=== PATIENT | male | born 1990 | race Caucasian/White ===

== ENCOUNTER 2020-08-12 05:37 | Emergency (ER) | payer SELFPAY ==
[~2020-08-12] VITALS: Ht 182.9 cm; Wt 99.8 kg
[2020-08-12 05:40] VITALS: BP_SYST 173
--- NOTE | 2020-08-12 05:40 | NUR ---
Placed in ambulance bay. LIUDMILA garcia with patient.
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
[2020-08-12 06:12] VITALS: BP_SYST 173
--- NOTE | 2020-08-12 06:30 | NUR ---
ER at AMBULANCE BAY examining patient.
[2020-08-12 07:14] VITALS: BP_SYST 173
--- NOTE | 2020-08-12 07:14 | NUR ---
Patient given written and verbal discharge instructions and verbalizes understanding. ER MD discussed with patient the results and treatment provided. Patient in stable condition. ID arm band removed. Patient educated on pain management and to follow up with PMD. Opportunity for questions provided and answered. Medication side effect fact sheet provided.
[2020-08-12] MEDS ORDERED: KETOROLAC TROMETHAMINE 30 MG VIAL ONE (13:09)
== END 2020-08-12 07:14 ==
LOC: SED 05:37
DX: S43.491A Other sprain of right shoulder joint, initial encounter (principal); X50.1XXA Overexertion from prolonged static or awkward postures, initial encounter; Y93.89 Activity, other specified; Y92.89 Other specified places as the place of occurrence of the external cause; Y99.8 Other external cause status
CPT/HCPCS: 99283; J1885

== ENCOUNTER 2020-08-12 12:28 | Emergency (ER) | payer SELFPAY ==
[~2020-08-12] VITALS: Ht 182.9 cm; Wt 104.3 kg
[2020-08-12 12:31] VITALS: BP_SYST 146
--- NOTE | 2020-08-12 12:35 | NUR ---
Pt bib [employer] with c/o abdominal pain 02/10 x2days. Pt was here this morning for ok to book with c/o arm pain and discharged. V/S stable, pt is afebrile, denies n/v at this time. No distress noted
--- NOTE | 2020-08-12 12:35 | NUR ---
Pt triaged and placed in hallway.
--- NOTE | 2020-08-12 13:00 | NUR ---
ER Dr. Soto at bedside examining patient.
--- NOTE | 2020-08-12 13:19 | NUR ---
# 20 gauge angiocath placed to RAC. Use of asceptic technique. Opsite placed over site. Blood return noted. Flushed with 10 cc of normal saline. No evidence of infiltration noted. Patient tolerated well.
[2020-08-12] MEDS: KETOROLAC TROMETHAMINE 30 MG VIAL IVP ONE (13:23)
[2020-08-12 13:24] LABS: BASOPHILS # (AUTO) 0.1 K/uL (0.0-0.2); BASOPHILS % (AUTO) 0.7 % (0.0-2.0); EOSINOPHILS % (AUTO) 0.2 % (0.0-4.0); HEMATOCRIT 50.9 % (36-54); HEMOGLOBIN 17.6 g/dL (14.0-18.0); LYMPHOCYTES # (AUTO) 2.5 K/uL (1.0-5.5); LYMPHOCYTES % (AUTO) 24.4 % (20.5-51.5); MEAN CORPUSCULAR HEMOGLOBIN 32 pg (27-31); MEAN CORPUSCULAR HGB CONC 35 % (32-36); MEAN CORPUSCULAR VOLUME 92 fL (79.0-98.0); MONOCYTES # (AUTO) 0.7 K/uL (0.0-1.0); MONOCYTES % (AUTO) 7.4 % (1.7-9.3); NEUTROPHILS # (AUTO) 6.8 K/uL (1.8-7.7); NEUTROPHILS % (AUTO) 67.3 % (40.0-70.0); PLATELET COUNT (AUTO) 278 K/uL (130-430); RED BLOOD CELL COUNT(AUTO) 5.51 MIL/uL (4.2-6.2); RED CELL DISTRIBUTION WIDTH 13.4 % (9.0-15.0); WHITE BLOOD COUNT (AUTO) 10.1 K/uL (4.8-10.8)
[2020-08-12 13:59] LABS: BILIRUBIN,URINE NEGATIVE (NEGATIVE); BLOOD, URINE NEGATIVE (NEGATIVE); CLARITY/URINE CLEAR (CLEAR); COLOR,URINE YELLOW (YELLOW); GLUCOSE,URINE NEGATIVE (NEGATIVE); KETONES,URINE NEGATIVE (NEGATIVE); LEUKOCYTE ESTERASE ,URINE NEGATIVE (NEGATIVE); NITRITE, URINE NEGATIVE (NEGATIVE); PROTEIN URINE NEGATIVE (NEGATIVE); UROBILINOGEN,URINE 0.2 (0.2-1.0)
[2020-08-12 14:03] LABS: CALCIUM 10.6 mg/dL (8.4-11.0); CREATININE 0.45 mg/dL (0.55-1.30); POTASSIUM 5.3 mmol/L (3.5-5.1)
[2020-08-12 14:09] LABS: ALBUMIN 4.9 g/dL (3.4-4.8); TOTAL BILIRUBIN 0.5 mg/dL (0.0-1.0)
--- NOTE | 2020-08-12 14:20 | NUR ---
Patient ambulatory to radiology, accompanied by [place] & staff .
[2020-08-12 15:47] VITALS: BP_SYST 146
--- NOTE | 2020-08-12 15:47 | NUR ---
Patient given written and verbal discharge instructions and verbalizes understanding. ER MD discussed with patient the results and treatment provided. Patient in stable condition. ID arm band removed. IV catheter removed intact and dressing applied, no active bleeding. No prescriptions given. Patient educated on pain management and to follow up with PMD. Pain Scale 0. Opportunity for questions provided and answered. Medication side effect fact sheet provided.
== END 2020-08-12 15:47 | disposition home or self-care (01) ==
LOC: SED 12:28
DX: K76.0 Fatty (change of) liver, not elsewhere classified (principal); R10.11 Right upper quadrant pain
CPT/HCPCS: 36415; 76700-TC; 80053; 81003; 83690-TC; 85025; 96374; 99284